=== PATIENT | male | born 1970 | race Two or more races ===

== ENCOUNTER 2020-04-25 08:33 | Emergency (ER) | payer SELFPAY ==
[~2020-04-25] VITALS: Ht 165.1 cm; Wt 81.8 kg
[2020-04-25] MEDS ORDERED: IV NORMAL SALINE 1000ML BAG 1,000 ML IV ONE (09:15)
[2020-04-25] MEDS ORDERED: DEXAMETHASONE SOD PHOS 4 MG/ML VIAL IVP ONE (09:15)
[2020-04-25] MEDS ORDERED: DEXAMETHASONE 4 MG TABLET PO ONE (09:30)
[2020-04-25] MEDS ORDERED: AZIT250T PO (09:51)
--- NOTE | 2020-04-25 09:51 | PHYS DOC ---
Past Medical History Past Medical History: No Pertinent History Past Surgical History: No Surgical History Smoking Status: Former Smoker Alcohol Use: None Drug Use: Heroin General Adult EDM: Chief Complaint: SHORTNESS OF BREATH HPI: HPI: 50-year-old male presents with 2-day history of viral type symptoms including chest discomfort, cough, shortness of breath, body aches, and fever. Patient reports T-max 102.0 Fahrenheit. Patient reports his got positive COVID-19 result yesterday. Patient reports he was also tested but has not yet received his result. Denies any nausea or vomiting. Patient reports shortness of breath worse with exertion. Review of Systems: Review of Systems: Constitutional: Reports fever and chills and generalized malaise Eyes: Denies redness or eye pain HENT: Denies nasal congestion or sore throat Respiratory: Reports cough and shortness of breath Cardiovascular: Reports chest discomfort; denies palpitations GI: Denies abdominal pain, nausea, or vomiting : Denies dysuria or hematuria Musculoskeletal: Denies back pain or joint pain Integument: Denies rash or skin lesions Neurologic: Denies headache, focal weakness or sensory changes Complete systems were reviewed and found to be within normal limits, except as documented in this note. Current Medications: Current Medications Medications (Trade) Dose Ordered Sig/Laurie Start Time Stop Time Status Last Admin Dose Admin Dexamethasone (Decadron) 10 mg 1X ONCE 04/25/20 09:30 04/25/20 09:31 DC Dexamethasone Sodium Phosphate (Decadron) 10 mg 1X ONCE 04/25/20 09:15 04/25/20 09:23 DC Sodium Chloride 1,000 ml @ 1,000 mls/hr 1X ONCE 04/25/20 09:15 04/25/20 09:23 DC Allergies: Allergies: Allergies Coded Allergies Type Severity Reaction Last Updated Verified No Known Drug Allergies 04/25/20 No Physical Exam: PE: Constitutional: Well developed, well nourished, no acute distress, non-toxic appearance HENT: Normocephalic, atraumatic Eyes: Conjunctiva normal, no discharge Neck: Normal range of motion, no tenderness, supple, no meningeal signs Lungs & Thorax: No respiratory distress, equal chest rise and fall Skin: Warm, dry, no erythema, no rash Extremities: No tenderness, ROM intact, no edema Neurologic: Alert and oriented X 3, no focal deficits noted Psychologic: Affect normal, judgment normal Current Patient Data: Vital Signs: Vital Signs Date Time Temp Pulse Resp B/P (MAP) Pulse Ox O2 Delivery O2 Flow Rate FiO2 04/25/20 08:37 99.3 87 18 138/71 (93) 94 Room Air 99.3 EKG: EKG: @0849 NSR at 81bpm, NO ST elevation, QRS 86ms, QT/QTc 360/419ms Radiology/Procedures: Radiology/Procedures: PROCEDURE: CHEST AP ONLY EXAMINATION: XR CHEST 1V CLINICAL HISTORY: Shortness of breath and cough x3 days COVID PUI EXAM DATE/TIME: 04/25/2020 9:29 AM COMPARISON: None FINDINGS: Lines, Tubes, and Devices: None. Cardiomediastinal Silhouette: Within normal limits. Lungs and Pleura: Pulmonary hypoexpansion with ill-defined patchy opacities throughout the bilateral lungs with a more peripheral distribution. No pleural effusion or pneumothorax. Bones and Soft Tissues: Degenerative changes of the thoracic spine. IMPRESSION: Bilateral patchy airspace disease suspicious for viral or atypical pneumonia. Electronically signed by: Marshal Macias DO (04/25/2020 10:13 AM) [facility] Course & Med Decision Making: Course & Med Decision Making Pertinent Imaging studies reviewed. (See chart for details) Patient presents with HPI and physical exam concerning for COVID-19 infection. Sats stable. Patient is afebrile. EKG stable. Chest x-ray with confirmation of viral type pneumonia. Patient had previously been tested for COVID-19 and is awaiting results. Symptomatic treatment provided. Incentive spirometer provided with education. Patient stable for discharge with outpatient follow-up with PCP. Discussed findings and plan with patient, who acknowledges understanding and agreement. COVID-19 CRITERIA: The patient was evaluated during the global COVID-19 pandemic, and that diagnosis was suspected/considered upon their initial presentation. Their evaluation, treatment and testing was consistent with current guidelines for patients who present with complaints or symptoms that may be related to COVID-19. [place] Disclaimer: Dragon Disclaimer: This electronic medical record was generated, in whole or in part, using a voice recognition dictation system. Departure Departure Impression: Primary Impression: Suspected 2019 novel coronavirus infection Disposition: 01 DC HOME SELF CARE/HOMELESS Condition: STABLE Referrals: NO PCP (PCP) Patient Instructions: Incentive Spirometer, Viral Syndrome Additional Instructions: You have been tested for or diagnosed with COVID-19. It is an infection caused by a new type of coronavirus. COVID-19 will cause cold-like or mild flu symptoms in most. It can cause more severe symptoms like problems breathing in some. There is no treatment for COVID-19. The body will clear the infection over time. Self-care will help to ease discomfort. Steps to Take: Self-Care Rest as needed. Healthy habits may help you feel better. Steps include: Choose healthy foods including fruits and vegetables. Drink water throughout the day. Get plenty of sleep each night. If you smoke, try to quit. It may ease breathing. Avoid alcohol. Keep Others Healthy The virus can spread to others. Droplets are released every time you sneeze or cough. The droplets can get into the mouth, nose, or eyes of people near you and lead to infection. To lower the chances of spreading COVID-19 to others: Stay at home until your doctor has said it is safe to leave. If you tested positive this will mean staying isolated until both of the following are true: At least 7 days have passed since the start of illness. You are free of fever for at least 72 hours without the use of medicine. During this time: - Avoid public areas, events, or transportation. Do not return to work or school until your doctor has said it is safe to do so. - Call ahead if you need to go to a medical center. Let them know you may have COVID-19. It will help them guide you where to go. They may also ask you to wear a facemask when you come to the office. - If you call for emergency medical services, let them know you may have COVID- 19. While at home: - Try to avoid close contact with others. Stay about 6 feet away. - If possible, spend most of your time in a separate room from others. - Use a face mask if you will be in close contact with others such as sharing a room or vehicle. - Have someone wipe down common surfaces in the home. Use household project manager/team coach every day on areas like doorknobs, counters, or sinks. - Cough or sneeze into a tissue. Throw the tissue away right after use. If a tissue is not available, cough or sneeze into your elbow. - Wash your hands often. Wash them after sneezing or coughing. Use soap and water and wash for at least 20 seconds. Alcohol based hand service cleaner can be used if soap and water is not available. - Do not prepare food for others. Avoid sharing personal items like forks, spoons, or toothbrushes. - Avoid close contact with pets while you are sick. There is no evidence of the virus passing to pets. This is a safety step until more is known about this virus. Isolation can be frustrating. Social interaction can help. Keep in touch with friends and family through phone and tech options. You can still interact with others in your home, just keep a safe distance of about 6 feet. Follow-up: Your doctors office will check in with you to see if there are any changes in your health. You may be asked to keep track of symptoms to share with them. They will also let you know when you are clear to be in public again. Problems to Look Out For: Contact your doctor if your recovery is not going as you expect. Get emergency care if you have problems such as: - Trouble breathing - Nonstop chest pain or pressure - Changes in awareness, confusion, or problems waking - Lips or face have bluish color - Worsening of symptoms If you think you have an emergency, call for emergency medical services right away. [facility] Azithromycin (ZITHROMAX) 250 Mg Tablet 1 PKG PO UD, #6 TAB Take 2 tablets on day 1 and then 1 tablet each day for the next 4 days as directed Prov: PATRICK MULTANI DO 04/25/20 COVID-19 Assessment: COVID-19 Patient Risks: Age 65 or older: No Sign of co-morbidity: No Exp to person + for COVID: Yes Exp to PUI: No Travel from affected area: No Lower respiratory symptoms: Yes Fever: Yes Other: Yes PPE Use: Full PPE with N95 mask or PAPR: Yes PATRICK MULTANI DO Apr 25, 2020 09:51
[2020-04-25 10:00] VITALS: BP 124/88
--- NOTE | 2020-04-25 10:16 | RAD ---
EXAMINATION: XR CHEST 1V CLINICAL HISTORY: Shortness of breath and cough x3 days COVID PUI EXAM DATE/TIME: 04/25/2020 9:29 AM COMPARISON: None FINDINGS: Lines, Tubes, and Devices: None. Cardiomediastinal Silhouette: Within normal limits. Lungs and Pleura: Pulmonary hypoexpansion with ill-defined patchy opacities throughout the bilateral lungs with a more peripheral distribution. No pleural effusion or pneumothorax. Bones and Soft Tissues: Degenerative changes of the thoracic spine. IMPRESSION: Bilateral patchy airspace disease suspicious for viral or atypical pneumonia. Electronically signed by: Marshal Macias DO (04/25/2020 10:13 AM) SHAIL[facility]
--- NOTE | 2020-04-25 17:11 | EKG ---
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
== END 2020-04-25 10:12 | disposition home or self-care (01) ==
LOC: ER 08:33
DX: R50.9 Fever, unspecified (principal); Z20.828 Contact with and (suspected) exposure to other viral communicable diseases; R07.89 Other chest pain; R05 Cough; F19.90 Other psychoactive substance use, unspecified, uncomplicated; R06.02 Shortness of breath; R53.83 Other fatigue; Z87.891 Personal history of nicotine dependence
CPT/HCPCS: 71045; 93005; 99285